=== PATIENT | female | born 1990 | race African-American/Black ===

== ENCOUNTER 2016-03-24 10:41 | Emergency (ER) | payer SELFPAY ==
[~2016-03-24] VITALS: Ht 167.6 cm; Wt 64.0 kg
[~2016-03-24 10:41] MED LIST: CILOXAN 0.3% O1 DROP LEFT EYE; FLONASE1 SPRAYS NASAL; GENTAK5 ML LEFT EYE; MACROBID100 MG ORAL; NKM; NORCO 5-325 TA1 EACH ORAL; PROAIR HFA8.5 GM INH; TESSALON PERLE100 M2 ORAL; ZITHROMAX250 MG ORAL
[2016-03-24 11:07] VITALS: BP 120/80
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
[2016-03-24] MEDS ORDERED: Proparacaine 0.5% Opth Soln 15ml BOTH EYES ONE (11:30)
[2016-03-24] MEDS ORDERED: IBUPROFEN600 MG ORAL (11:41)
[2016-03-24] MEDS ORDERED: GENTAMICIN SUL3.5 GM OP (11:41)
[2016-03-24] MEDS ORDERED: PREDNISONE20 MG ORAL (11:42)
[2016-03-24 12:03] VITALS: BP 120/80
== END 2016-03-24 12:04 | disposition home or self-care (01) ==
LOC: EMR 11:30
DX: H10.9 Unspecified conjunctivitis (principal)
CPT/HCPCS: 99282

== ENCOUNTER 2017-10-30 02:12 | Emergency (ER) | payer OTHER ==
[~2017-10-30] VITALS: Ht 167.6 cm; Wt 63.5 kg
[~2017-10-30 02:12] MED LIST changes: +GENTAMICIN SUL3.5 GM OP; +IBUPROFEN600 MG ORAL; +PREDNISONE20 MG ORAL
[2017-10-30 02:25] VITALS: BP 106/65
[2017-10-30 02:35] VITALS: BP 106/65
[2017-10-30] MEDS ORDERED: POLYTRIM OP SOL10 ML OPHTHALM (02:42)
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
== END 2017-10-30 02:35 | disposition home or self-care (01) ==
LOC: EMR 02:34
DX: H10.32 Unspecified acute conjunctivitis, left eye (principal); J45.909 Unspecified asthma, uncomplicated; Z86.79 Personal history of other diseases of the circulatory system
CPT/HCPCS: 99283